=== PATIENT | male | born 1995 | race Caucasian/White ===

== ENCOUNTER 2018-05-30 09:41 | Emergency (ER) | payer SELFPAY ==
[~2018-05-30] VITALS: Ht 177.8 cm; Wt 81.8 kg
[2018-05-30 10:42] VITALS: BP 126/89
== END 2018-05-30 10:46 | disposition home or self-care (01) ==
LOC: EMS 09:45
DX: L01.00 Impetigo, unspecified (principal)
CPT/HCPCS: 99283

== ENCOUNTER 2018-10-18 15:43 | Emergency (ER) | payer SELFPAY ==
[~2018-10-18] VITALS: Ht 177.8 cm; Wt 81.8 kg
[2018-10-18 15:47] VITALS: BP 137/86
[2018-10-18] MEDS ORDERED: IBUPROFEN 800 MG TABLET PO ONE (17:45)
== END 2018-10-18 17:59 | disposition home or self-care (01) ==
LOC: EMS 15:44
DX: R10.31 Right lower quadrant pain (principal)